=== PATIENT | female | born 1950 | race Caucasian/White ===

== ENCOUNTER 2018-05-12 11:53 | Observation (INO) | payer MEDICARE, BC ==
[~2018-05-12] VITALS: Ht 157.5 cm; Wt 81.7 kg
[~2018-05-12 11:53] MED LIST: BAYER CHEWABLE81 MG PO; CENTRUM SILVER ULTRA PO; DITROPAN XL10 MG PO; HYDROCHLOROTH12.5 M1 PO; METOPROL TAR100 MG PO; PREVACID30 M3 PO; VIACTIV PO; VITAMIN D1000 UNIT PO; ZOCOR20 M1 PO
[2018-05-12] MEDS ORDERED: MYRBETRIQ50 MG (12:15)
[2018-05-12] MEDS ORDERED: LOSARTAN POT50 MG PO (12:15)
[2018-05-12] MEDS ORDERED: METFORMIN500 MG PO (12:15)
[2018-05-12 13:09] LABS: ALBUMIN 4.5 g/dL (3.2-5.0); ALKALINE PHOSPHATASE 64 u/l (38-126); ANION GAP 13 (6-22 (CALC)); BUN 14 mg/dL (8-23); BUN/CREATININE RATIO 19 (12-20 (CALC)); CARBON DIOXIDE 32 mmol/l (22-30); CHLORIDE 99 mmol/l (95-108); CREATININE 0.8 mg/dL (0.5-1.0); GFR > 60 ML/MIN (>=60 (CALC)); GFR FOR AFR.AMER. > 60 ML/MIN (>=60 (CALC)); POTASSIUM 4.1 mmol/l (3.5-5.1); SGOT/AST 25 u/l (9-36); SODIUM 141 mmol/l (137-146); TOTAL PROTEIN 7.6 g/dL (6.3-8.2)
[2018-05-12 13:28] LABS: HEMATOCRIT 41.3 % (37.0-47.0); HEMOGLOBIN 13.7 g/dl (12.0-16.0); IMMATURE GRANULOCYTES 0.4 % (0.0-5.0); MEAN CELL VOLUME 93.4 fL CALC (80.0-100.0); MEAN CORPUSCULAR HGB CONC 33.2 g/L CALC (32.0-36.0); RED BLOOD COUNT 4.42 mill/uL (4.20-5.60); RED CELL DISTRI WIDTH 13.1 % (11.5-15.5)
[2018-05-12 16:10] VITALS: BP 156/74
[2018-05-12 20:00] VITALS: BP 126/65
[2018-05-12 21:30] LABS: URINE BILIRUBIN - DIPSTICK NEGATIVE (NEGATIVE); URINE BLOOD DIPSTICK NEGATIVE (NEGATIVE); URINE COLOR YELLOW; URINE GLUCOSE - DIPSTICK NEGATIVE (NEGATIVE); URINE KETONE NEGATIVE (NEGATIVE); URINE NITRITE - DIPSTICK NEGATIVE (Negative); URINE PROTEIN - DIPSTICK NEGATIVE (NEG-TRACE); URINE SPECIFIC GRAVITY 1.015; URINE UROBILINOGEN - DIPSTICK 0.2 E.U./dL (0.2)
[2018-05-12 21:41] LABS: URINE LEUK ESTERASE SMALL (NEGATIVE)
[2018-05-12 21:42] LABS: URINE RBC 0-2 RBC/hpf (0-5); URINE SQUAMOUS EPITHELIAL CELL FEW EPI/hpf (0-FEW)
[2018-05-13 00:22] VITALS: BP 112/58
[2018-05-13 03:42] VITALS: BP 133/60
[2018-05-13 06:42] LABS: HEMATOCRIT 40.8 % (37.0-47.0); HEMOGLOBIN 13.5 g/dl (12.0-16.0); IMMATURE GRANULOCYTES 0.3 % (0.0-5.0); MEAN CELL VOLUME 92.5 fL CALC (80.0-100.0); MEAN CORPUSCULAR HGB 30.6 pG CALC (26.0-32.0); MEAN CORPUSCULAR HGB CONC 33.1 g/L CALC (32.0-36.0); NEUT# 6.07 thou/uL (2.00-7.15); RED BLOOD COUNT 4.41 mill/uL (4.20-5.60)
[2018-05-13 06:56] LABS: ALBUMIN 3.7 g/dL (3.2-5.0); ALKALINE PHOSPHATASE 57 u/l (38-126); AMYLASE 30 u/l (30-110); ANION GAP 12 (6-22 (CALC)); BILIRUBIN, TOTAL 1.2 mg/dL (0.0-1.4); BUN 15 mg/dL (8-23); BUN/CREATININE RATIO 22 (12-20 (CALC)); CARBON DIOXIDE 30 mmol/l (22-30); CHLORIDE 102 mmol/l (95-108); CREATININE 0.7 mg/dL (0.5-1.0); GFR > 60 ML/MIN (>=60 (CALC)); GFR FOR AFR.AMER. > 60 ML/MIN (>=60 (CALC)); LIPASE 36 u/l (23-300); MAGNESIUM 1.5 mg/dL (1.6-2.3); POTASSIUM 4.2 mmol/l (3.5-5.1); SGOT/AST 18 u/l (9-36); SODIUM 139 mmol/l (137-146); TOTAL PROTEIN 6.3 g/dL (6.3-8.2)
[2018-05-13 08:12] VITALS: BP 127/46
[2018-05-13 15:26] VITALS: BP 114/46
== END 2018-05-13 15:55 | disposition home or self-care (01) ==
LOC: ED 11:53 → ED-I 13:22 → ED 14:26 → MS2 14:27
PROVIDERS: Family Medicine; ADMIT Internal Medicine Nephrology; ATTEND Internal Medicine Nephrology
DX: R07.89 Other chest pain (principal); I10 Essential (primary) hypertension; E11.9 Type 2 diabetes mellitus without complications; E78.5 Hyperlipidemia, unspecified; K21.9 Gastro-esophageal reflux disease without esophagitis; F41.9 Anxiety disorder, unspecified; R32 Unspecified urinary incontinence; E55.9 Vitamin D deficiency, unspecified; R06.02 Shortness of breath

== ENCOUNTER 2022-05-12 12:23 | Inpatient (IN) | payer MEDICARE, BC ==
[2022-05-12] VITALS (14 sets, daily range): BP systolic 66–160; BP diastolic 42–77
[~2022-05-12] VITALS: Ht 157.5 cm; Wt 68.7 kg
[~2022-05-12 12:23] MED LIST changes: +LOSARTAN POT50 MG PO; +METFORMIN500 MG PO; +MYRBETRIQ50 MG
--- NOTE | 2022-05-12 13:37 | NUR ---
PATIENT ESCORTED VIA W/C WITH DAUGHTER AT SIDE APPROX 1323, CALL LIGHT IN REACH, PROVIDER NOTIFIED.
--- NOTE | 2022-05-12 13:40 | NUR ---
PATIENT TO ROOM 14 WITH DAUGHTER
[2022-05-12 14:17] LABS: BASO% 0.3 % (0-3); EOS% 0.3 % (0-8); HEMOGLOBIN 10.5 g/dl (12.0-16.0); IMMATURE GRANULOCYTES 0.4 % (0.0-5.0); LYMPH% 15.7 % (15-41); MEAN CELL VOLUME 96.1 fL CALC (80.0-100.0); MEAN CORPUSCULAR HGB 29.3 pG CALC (26.0-32.0); MEAN CORPUSCULAR HGB CONC 30.5 g/dL CAL (32.0-36.0); MONO% 8.4 % (2-13); NEUT# 7.89 thou/uL (2.00-7.15); NEUT% 74.9 % (42-76); RED BLOOD COUNT 3.58 mill/uL (4.20-5.60); RED CELL DISTRI WIDTH 15.2 % (11.5-15.5)
[2022-05-12 14:18] LABS: HEMATOCRIT 34.4 % (37.0-47.0)
[2022-05-12 14:36] LABS: ALBUMIN 2.9 g/dL (3.2-5.0); ALKALINE PHOSPHATASE 98 u/l (38-126); ANION GAP 5 (6-22 (CALC)); BILIRUBIN, TOTAL 0.5 mg/dL (0.02-1.3); BUN 17 mg/dL (8-23); BUN/CREATININE RATIO 25 (12-20 (CALC)); CARBON DIOXIDE 35 mmol/l (22-30); CHLORIDE 98 mmol/l (95-108); CREATININE 0.7 mg/dL (0.5-1.0); GFR FOR AFR.AMER. > 60 ML/MIN (>=60 (CALC)); GFR OTHER RACES > 60 ML/MIN (>=60 (CALC)); LIPASE 77 u/l (23-300); POTASSIUM 3.3 mmol/l (3.5-5.1); SGOT/AST 48 u/l (9-36); SODIUM 134 mmol/l (137-146); TOTAL PROTEIN 5.6 g/dL (6.3-8.2)
[2022-05-12 15:07] LABS: URINE BILIRUBIN - DIPSTICK NEGATIVE (NEGATIVE); URINE BLOOD DIPSTICK SMALL (NEGATIVE); URINE COLOR YELLOW; URINE GLUCOSE - DIPSTICK NEGATIVE (NEGATIVE); URINE KETONE NEGATIVE (NEGATIVE); URINE PROTEIN - DIPSTICK NEGATIVE (NEG-TRACE); URINE UROBILINOGEN - DIPSTICK 0.2 E.U./dL (0.2)
[2022-05-12 15:10] LABS: URINE LEUK ESTERASE SMALL (NEGATIVE); URINE NITRITE - DIPSTICK NEGATIVE (Negative)
[2022-05-12 15:15] LABS: URINE SQUAMOUS EPITHELIAL CELL FEW EPI/hpf (0-FEW)
--- NOTE | 2022-05-12 15:15 | NUR ---
Reassessment of patient completed. No distress noted.
--- NOTE | 2022-05-12 17:50 | NUR ---
ED PROVIDER CURREENTLY BEDSIDE FOR RECTAL EXAM
--- NOTE | 2022-05-12 18:52 | NUR ---
Reassessment of patient completed. No distress noted.
--- NOTE | 2022-05-12 19:04 | NUR ---
BEDSIDE REPORT TO [facility] ANGELO
--- NOTE | 2022-05-12 19:21 | NUR ---
REPORT CALLED TO [facility] UPSTAIRS. PT IN RM AWAITING TRANSFER.
--- NOTE | 2022-05-12 19:24 | NUR ---
REPORT CALLED TO [facility] UPSTAIRS. PT COMFORTABLE AND AWAITING TRANSFER IN ROOM.
--- NOTE | 2022-05-12 19:41 | NUR ---
PT TRANSFERRED BY TECH UPSTAIRS, ACCOMPANIED BY DAUGHTER. DAUGHTER STILL PREPARING MED LIST FOR NURSE UPSTAIRS.
[2022-05-12] MEDS ORDERED: RYTARY 36.25-141 CAP PO (20:10)
[2022-05-12] MEDS ORDERED: FLUDROCORTISON0.1 MG PO (20:12)
[2022-05-12] MEDS ORDERED: VENLAFAXINE75 M1 PO (20:13)
[2022-05-12] MEDS ORDERED: K-TAB20 MEQ PO (20:15)
[2022-05-12] MEDS ORDERED: LASIX 40 MG TAB40 MG PO (20:16)
--- NOTE | 2022-05-12 20:30 | NUR ---
PATIENT ADMITTED FROM ER VIA STRETCHER WITH [facility] [facility] STAFF IN ATTENDANCE. PATIENT ASSISTED FROM STRETCHER TO BED. PATIENT WITH O2 VIA NASAL CANNULA IN PLACE. O2 SAT ON RA WAS 88% AND O2 REAPPLIED AT 2LPM. PATIENT DOES NOT USE O2 AT HOME. DAUGHTER HERE AT BEDSIDE. 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 WAS RECENTLY GIVEN TREMFYA FOR TREATMENT. PHOTO WAS TAKEN. PATIENT ALSO WITH HX OF PARKINSONS DISEASE WITH RECENT FALLS AT HOME. LIVES WITH ELDERLY . PATIENT ALSO HAS LOST MOST OF HER HAIR ALONG WITH SEVERE RASH. PATIENT IS SOB WITH LITTLE OR NO EXHERSION. LUNGS ARE DIMINISHED THROUGHOUT. WHEEZING NOTED TO UPPER AIRWAY. ABD IS SOFT WITH ACITVE BS BUT DOESN'T KNOW FOR SURE WHEN HER LAST BM WAS-MAYBE 3-4 DAYS AGO. PERINEAL AREA IS VERY RAW AND IRRITATED FROM THIS RASH. AREA WAS WASHED WITH SOAP AND WATER. PATIENT APPETITE IS GOOD FOR DINNER. PATIENT ORIENTED TO ROOM AND SURROUNDINGS. INSTRUCTED ON USE OF NURSE CALL LIGHT SYSTEM AND TV REMOTE. SAFETY PRECAUTIONS REINFORCED. BED ALARM IN PLACE FOR PATIENT SAFETY. CALL LIGHT IN REACH. WILL CONT TO MONITOR.
[2022-05-12 21:51] LABS: HEMOGLOBIN 10.8 g/dl (12.0-16.0)
--- NOTE | 2022-05-12 23:52 | NUR ---
PATIENT RESTING IN BED AT THIS TIME WITH EYES CLOSED. RESPS ARE EVEN AND UNLABORED AT THIS TIME. O2 VIA NASAL CANNULA IN PLACE AT 2LPM. PUREWICK IN PLACE. TELE MONITOR IN PLACE. SALINE LOCK TO RAC INTACT. BED ALARM IN PLACE FOR PATIENT SAFETY. CALL LIGHT IN REACH. WILL CONT TO MONITOR.
[2022-05-13 00:32] VITALS: BP 183/67
--- NOTE | 2022-05-13 01:29 | NUR ---
PATIENT RESTING IN BED-ANXIOUS AND REMOVED IV SITE. NEW IV SITE STARTED TO RAC-#22 WITH GOOD BLOOD RETURN. PATIENT REPOSITIONED AND PUREWICK REMOVED IT IS TOO PAINFUL FOR PATIENT AT THIS TIME-DUE TO SEVERE RASH AND IRRITATION OF THE PERINEAL AREA. AREA WAS WASHED AND DRIED. BREIF APPLIED FOR URINE INCONT. PHOTO TAKEN FOR CHART. PATIENT IS SOMEWHAT CONFUSED AT THIS TIME. REORIENTED TO PLACE AND TIME. O2 VIA NASAL CANNULA IN PLACE. TELE MONITOR IN PLACE AT THIS TIME. BARRIER CREAM APPLIED TO BACK AND LEGS FOR COMFORT. PATIENT WITH SOME ITCHING. BED ALARM IN PLACE FOR PATIENT SAFETY. CALL LIGHT IN REACH. WILL CONT TO MONITOR.
--- NOTE | 2022-05-13 02:38 | NUR ---
PATIENT FOUND ON COUCH-FOUND 250CC OF YELLOW URINE IN BSC IN BR. ASSISTED BACK TO BED. PATIENT IS CONFUSED-ATTEMPT TO REORIENT TO PLACE AND TIME. O2 REAPPLIED. BED ALARM IN PLACE FOR PATIENT SAFETY. STAFF SITTING OUTSIDE ROOM FOR PATIENT SAFETY. WILL CONT TO MONITOR.
[2022-05-13 04:00] VITALS: BP 162/76
--- NOTE | 2022-05-13 04:59 | NUR ---
PATIENT CONT TO BE RESTLESS. CONSTANTLY TRYING TO TAKE O2 OFF. REAPPLIED AGAIN AT 2LPM. O2 SATS WITHOUT O2 ARE IN THE UPPER 80'S WITH O2 SATS IN LOWER TO MID 90'S. TELE MONITOR IN PLACE. SALINE LOCK TO RAC INTACT. BED ALARM IN PLACE FOR PATIENT SAFETY. CALL LIGHT IN REACH. WILL CONT TO MONITOR.
[2022-05-13 05:41] LABS: HEMATOCRIT 34.6 % (37.0-47.0); HEMOGLOBIN 10.8 g/dl (12.0-16.0); MEAN CELL VOLUME 95.8 fL CALC (80.0-100.0); MEAN CORPUSCULAR HGB 29.9 pG CALC (26.0-32.0); MEAN CORPUSCULAR HGB CONC 31.2 g/dL CAL (32.0-36.0); RED BLOOD COUNT 3.61 mill/uL (4.20-5.60); RED CELL DISTRI WIDTH 15.2 % (11.5-15.5)
[2022-05-13 06:05] LABS: ALBUMIN 2.7 g/dL (3.2-5.0); ALKALINE PHOSPHATASE 87 u/l (38-126); ANION GAP 4 (6-22 (CALC)); BILIRUBIN, TOTAL 0.4 mg/dL (0.02-1.3); BUN 19 mg/dL (8-23); BUN/CREATININE RATIO 19 (12-20 (CALC)); CARBON DIOXIDE 37 mmol/l (22-30); CHLORIDE 99 mmol/l (95-108); GFR FOR AFR.AMER. > 60 ML/MIN (>=60 (CALC)); GFR OTHER RACES 54 ML/MIN (>=60 (CALC)); MAGNESIUM 1.5 mg/dL (1.6-2.3); POTASSIUM 3.4 mmol/l (3.5-5.1); SGOT/AST 38 u/l (9-36); SODIUM 136 mmol/l (137-146); TOTAL PROTEIN 5.5 g/dL (6.3-8.2)
[2022-05-13 06:46] VITALS: BP 151/54
[2022-05-13 10:22] VITALS: BP 139/60
[2022-05-13 14:49] VITALS: BP 154/56
[2022-05-13 18:39] VITALS: BP 145/46
--- NOTE | 2022-05-13 20:00 | NUR ---
PATIENT RESTING IN BED AT THIS TIME-AWAKE ALERT AND ORIENTED TO PERSON AND PLACE. O2 VIA NASAL CANNULA IN PLACE AT 2LPM WITH O2 SAT OF 95%. CONT TO HAVE RASH OVER MUCH OF HER BODY-WAS SEEN BY WOUND CARE TODAY AND STARTED ON VALTREX. IV SITE TO LAC INTACT AND HEALTHY WITH GOOD BLOOD RETURN. BED ALARM IN PLACE FOR PATIENT SAFETY. SAFETY PRECAUTIONS REINFORCED. CALL LIGHT IN REACH. WILL CONT TO MONITOR.
[2022-05-14 00:05] VITALS: BP 158/57
--- NOTE | 2022-05-14 04:21 | NUR ---
PATIENT RESTING INBED-INCONT OF LARGE AMT OF YELLOW URINE. PROVIDED WITH PERICARE WITH SOAP AND WATER. BARRIER CREAM APPLIED TO RASH. LINEN AND PADS CHANGED. TURNED AND REPOSITIONED. O2 VIA NASAL CANNULA IN PLACE. SALINE LOCK TO LAC INTACT. TELE MONITOR IN PLACE. LAB WORK DRAWN. BED ALARM IN PLACE FOR PATIENT SAFETY. CALL LIGHT IN REACH.SAFETY PRECAUTIONS REINFORCED. WILL CONT TO MONITOR.
[2022-05-14 05:31] LABS: BASO% 0.3 % (0-3); EOS% 1.9 % (0-8); HEMATOCRIT 36.1 % (37.0-47.0); HEMOGLOBIN 11.2 g/dl (12.0-16.0); IMMATURE GRANULOCYTES 0.2 % (0.0-5.0); LYMPH% 18.9 % (15-41); MEAN CORPUSCULAR HGB 29.8 pG CALC (26.0-32.0); MONO% 5.7 % (2-13); NEUT# 6.5 thou/uL (2.00-7.15); RED BLOOD COUNT 3.76 mill/uL (4.20-5.60); RED CELL DISTRI WIDTH 15.1 % (11.5-15.5)
[2022-05-14 05:43] LABS: ALBUMIN 2.9 g/dL (3.2-5.0); ALKALINE PHOSPHATASE 80 u/l (38-126); ANION GAP 5 (6-22 (CALC)); BUN 14 mg/dL (8-23); BUN/CREATININE RATIO 21 (12-20 (CALC)); CARBON DIOXIDE 39 mmol/l (22-30); CHLORIDE 95 mmol/l (95-108); CREATININE 0.6 mg/dL (0.5-1.0); GFR FOR AFR.AMER. > 60 ML/MIN (>=60 (CALC)); GFR OTHER RACES > 60 ML/MIN (>=60 (CALC)); POTASSIUM 3.9 mmol/l (3.5-5.1); SGOT/AST 32 u/l (9-36); SODIUM 135 mmol/l (137-146); TOTAL PROTEIN 5.8 g/dL (6.3-8.2)
[2022-05-14 06:00] LABS: BILIRUBIN, TOTAL 0.7 mg/dL (0.02-1.3)
[2022-05-14 06:45] VITALS: BP 155/57
--- NOTE | 2022-05-14 07:14 | NUR ---
PT RESTING IN LOW FOWLERS POSITION. A/OX3 WITH CONFUSION ASSESSMENT AND VS COMPLETED. HEART RHYTHM ON TELE. RESPIRATIONS ON ROOM AIR . IV SITE NOTED TO LAC.AID AND STRUCTURER TO CLEAN UP PT . PT WET FROM HEAD TO TOE. ALL SAFETY PRECAUTIONS IN PLACE WITH CALL LIGHT IN REACH.
[2022-05-14 11:16] VITALS: BP 131/49
--- NOTE | 2022-05-14 12:55 | NUR ---
MANAGER CONVENTION AWARE OF FAMILY COMPLAINTS OF PT EYES DRAINING. NO EYEDROPS ORDERED AT THE TIME PER MANAGER CONVENTION.
--- NOTE | 2022-05-14 16:19 | NUR ---
PT RESTING IN LOW FOWLERS PT FAMILY AT BEDSIDE ABLE TO HELP AMBULATE PT TO RESTROOM TO VOID. URINE OUTPUT TO BE DOCUMENTED. FAMILY STATED BM DURING THE DAY.
[2022-05-14 16:58] VITALS: BP 145/47
[2022-05-14 18:44] VITALS: BP 155/55
--- NOTE | 2022-05-14 19:57 | NUR ---
PATIENT RECEIVING P.M. CARE FROM FAMILY. ALERT AND ORIENTED X3. ASSESSMENT COMPLETED. NO DISTRESS NOTED. CALL LIGHT WITHIN REACH.
[2022-05-14 23:55] VITALS: BP 145/56
--- NOTE | 2022-05-15 00:10 | NUR ---
RESTING IN BED. VSS, NO DISTRESS NOTED. CALL LIGHT WITHIN REACH. BED ALARM ACTIVE.
--- NOTE | 2022-05-15 04:34 | NUR ---
RESTING QUIETLY EYES CLOSED. BED IN LOW POSITION, ALARM ACTIVE. CALL LIGHT WITHIN REACH.
[2022-05-15 04:37] VITALS: BP 171/65
[2022-05-15 05:50] LABS: BASO% 0.4 % (0-3); EOS% 6.3 % (0-8); HEMATOCRIT 36.1 % (37.0-47.0); HEMOGLOBIN 11.1 g/dl (12.0-16.0); IMMATURE GRANULOCYTES 0.3 % (0.0-5.0); LYMPH% 25.1 % (15-41); MEAN CELL VOLUME 95.3 fL CALC (80.0-100.0); MEAN CORPUSCULAR HGB 29.3 pG CALC (26.0-32.0); MEAN CORPUSCULAR HGB CONC 30.7 g/dL CAL (32.0-36.0); MONO% 6.5 % (2-13); NEUT# 4.75 thou/uL (2.00-7.15); NEUT% 61.4 % (42-76); RED BLOOD COUNT 3.79 mill/uL (4.20-5.60); RED CELL DISTRI WIDTH 14.7 % (11.5-15.5)
[2022-05-15 06:02] LABS: ALBUMIN 2.6 g/dL (3.2-5.0); ALKALINE PHOSPHATASE 80 u/l (38-126); ANION GAP 4 (6-22 (CALC)); BILIRUBIN, TOTAL 0.5 mg/dL (0.02-1.3); BUN 17 mg/dL (8-23); BUN/CREATININE RATIO 25 (12-20 (CALC)); CARBON DIOXIDE 37 mmol/l (22-30); CHLORIDE 97 mmol/l (95-108); CREATININE 0.7 mg/dL (0.5-1.0); GFR FOR AFR.AMER. > 60 ML/MIN (>=60 (CALC)); GFR OTHER RACES > 60 ML/MIN (>=60 (CALC)); POTASSIUM 3.5 mmol/l (3.5-5.1); SGOT/AST 26 u/l (9-36); SODIUM 135 mmol/l (137-146); TOTAL PROTEIN 5.6 g/dL (6.3-8.2)
[2022-05-15 06:48] VITALS: BP 162/57
--- NOTE | 2022-05-15 07:16 | NUR ---
PT A/OX2 RESTING IN LOW FOWLERS POSITION. PT ASSESSMENT AND VS COMPLETED. BP CAME DOWN. PT TOOK HOME MEDICATIONS WELL ALONE PT FAMILY STATED MEDICATIONS DO NOT WORK WELL IF TAKEN WITH FOOD. PT CONFUSED DID NOT KNOW LOCATION ASKED"DO YOU KNOW WHICH HOSPITAL IM GOING TO ?" STATED TO PT SHE WAS IN A [facility]OM[facility] AT [facility]. SHE STATED"I AM?". PT DENIES ADDITIONAL NEEDS AT BEDSIDE PT IV TO RFA. PT RESPIRATIONS ON ROOM AIR. ALL SAFETY PRECAUTIONS IN PLACE.
[2022-05-15 09:49] VITALS: BP 101/39
[2022-05-15 10:55] VITALS: BP 120/44
[2022-05-15] MEDS ORDERED: CEPHALEXIN500 MG PO (11:17)
[2022-05-15] MEDS ORDERED: VALTREX500 MG PO (11:18)
--- NOTE | 2022-05-15 12:11 | NUR ---
PT TO BE DC.
--- NOTE | 2022-05-15 13:13 | NUR ---
Discharge instructions given. Patient verbalizes understanding of same. Discharged in stable condition via Wheelchair to Home with staff. All belongings sent with pt. iv removed tele removed placed in black box home medications sent with pt.
== END 2022-05-15 13:11 | DRG 866 ==
LOC: ED 12:23 → ED-I 17:56 → ED 18:09 → MS2 18:10
PROVIDERS: Nurse Practitioner; Nurse Practitioner Family; ADMIT Internal Medicine; ATTEND Internal Medicine
DX: B02.7 Disseminated zoster (principal); N39.0 Urinary tract infection, site not specified; J90 Pleural effusion, not elsewhere classified; G20 Parkinson's disease; I12.9 Hypertensive chronic kidney disease with stage 1 through stage 4 chronic kidney disease, or unspecified chronic kidney disease; E11.22 Type 2 diabetes mellitus with diabetic chronic kidney disease; N18.9 Chronic kidney disease, unspecified; E78.5 Hyperlipidemia, unspecified; M25.552 Pain in left hip; M25.551 Pain in right hip; K59.00 Constipation, unspecified; K21.9 Gastro-esophageal reflux disease without esophagitis; R09.02 Hypoxemia; L40.8 Other psoriasis; R19.5 Other fecal abnormalities; B95.61 Methicillin susceptible Staphylococcus aureus infection as the cause of diseases classified elsewhere; Z20.822 Contact with and (suspected) exposure to COVID-19
CPT/HCPCS: J3475; Q9967; S0164